=== PATIENT | female | born 1940 | race Caucasian/White ===

== ENCOUNTER 2018-03-05 13:25 | Emergency (ER) | payer MEDICARE, SELFPAY ==
[2018-03-05 13:28] VITALS: BP 178/93; PULSE 75; RESP 15; TEMP 36.3; O2SAT 96; BMI 30.2
--- NOTE | 2018-03-05 13:34 | ED.NAVMDI ---
HPI - Nausea/Vomiting/Diarrhea General Chief complaint: Nausea/Vomiting/Diarrhea Stated complaint: PIECE OF MEAT STUCK IN THROAT Time Seen by Provider: 03/05/18 13:34 Source: patient Mode of arrival: ambulatory Limitations: no limitations History of Present Illness HPI Narrative: Patient is a 77-year-old female here for evaluation of which he thinks is a piece of turkey that is stuck in her throat. She states that she was eating turkey. She states that she thought that she chewed up appropriately however when she swallowed felt like it got stuck in her upper chest. Has been unable to swallow liquids or her secretions since then. She states that she has had food gets stuck in the past but has always cleared on its own. Has had an upper endoscopy many years ago for another reason. No problems breathing. Related Data Allergies Allergy/AdvReac Type Severity Reaction Status Date / Time codeine [CODEINE] AdvReac Mild BLOTCHY Verified 03/05/18 13:28 Penicillins [PENICILLINS] AdvReac Mild BLOTCHY Verified 03/05/18 13:28 Review of Systems Constitutional Denies fever(s) Cardiovascular Denies chest pain and Denies dyspnea Respiratory Denies dyspnea Gastrointestinal Gastrointestinal: Denies abdominal pain and Reports vomiting Comments: Feels like a piece of food stuck in her throat Integumentary/Breasts Denies lesions and Denies rash Hematologic/Lymphatic Denies easy bleeding and Denies easy bruising PFSH Medical History Healthy adult (Acute) Surgical History No pertinent past surgical history (Acute) Social History marital status: Exam Initial Vital Signs Initial Vital Signs: Vital Signs Temperature 97.3 F L 03/05/18 13:28 Pulse Rate 75 03/05/18 13:28 Respiratory Rate 15 03/05/18 13:28 Blood Pressure 178/93 H 03/05/18 13:28 Pulse Oximetry 96 03/05/18 13:28 Const General: cooperative, comfortable, well developed, well groomed and No acute distress [facility] Head: normocephalic and atraumatic Resp Effort & Inspection: normal respiratory effort Auscultation: clear to auscultation bilaterally Cardio Rate: regular rate Rhythm: regular rhythm Pulses: radial pulses present GI Inspection: non-distended Palpation: soft Skin Lesions: no lesions Neuro General: alert, awake and oriented x3 Extrem General: normal to inspection and capillary refill normal Psych Appearance: grossly normal and well kempt Course Orders Ordered: Discontinued Medications Glucagon (Glucagen) 1 mg IV NOW ONE Stop: 03/05/18 13:41 Last Admin: 03/05/18 14:02 Dose: Vital Signs - 8 hr 03/05/18 13:28 Temperature 97.3 F L Pulse Rate 75 Respiratory Rate 15 Blood Pressure 178/93 H Pulse Oximetry 96 MDM - Nausea/Vomiting/Diarrhea MDM Narrative Medical decision making narrative: patient without any respiratory distress. When I had her try to drink water here in the room she did vomit with what appeared to be small amounts meet material. She was given a warm soda which caused her to vomit some more with more return organic material. Upon another drink a soda she states she felt like the food bolus progressed down into her stomach. She was able to tolerate oral fluids since then. Discussed with her return precautions. Informed her the importance of eating small pieces of food. Informed her she needs to talk with her primary doctor about having a upper endoscopy. She expressed understanding and agreement with plan. Discharge Plan Departure Patient Disposition: Home Clinical Impression: Food impaction of esophagus Instructions: Steakhouse Syndrome Activity Restrictions/Additional Instructions: recommend that when you eat you take small pieces of food and chew it sufficiently. Contact your primary care provider to discuss the indications for referral to see Gastroenterology to have an upper endoscopy. Return to the emergency department for any new or worsening symptoms
--- NOTE | 2018-03-05 14:00 | PC.NURSE ---
Patient eating turkey felt it get stuck. Unable to swallow secretions, spitting up in bag. Patient had two significant emesis after drinking water with some parts of turkey out. Patient took two sips of warm coke and felt food bolus pass with relief. Able to tolerate PO fluids.
[2018-03-05 14:15] VITALS: BP 165/82; PULSE 72; RESP 12; O2SAT 100
== END 2018-03-05 14:16 | disposition home or self-care (01) ==
PROVIDERS: Emergency Provider Emergency Medicine
DX: T18.128A Food in esophagus causing other injury, initial encounter (principal)
CPT/HCPCS: 99282